=== PATIENT | male | born 1965 | race African-American/Black ===

== ENCOUNTER 2016-12-28 20:26 | Emergency (ER) | payer OTHER ==
[~2016-12-28 20:26] MED LIST: ALBUTEROL SULF8.5 GM INH; BACTRIM DS TAB1 EAC1 ORAL; CLINDAMYCIN HC300 MG ORAL; COLCHICINE0.6 M1 PO; INDOMETHACIN50 MG PO; KEFLEX500 MG ORAL; LANTUS SOL100 UNIT/1 SUBQ; METFORMIN HCL500 M1 ORAL; NORCO 10/3251 EA ORAL; NORCO 5-325 TA1 EACH ORAL; PREDNISONE50 MG ORAL
--- NOTE | 2016-12-28 21:42 | Emergency Room Report ---
History of Present Illness General Chief Complaint: To Be Triaged Present Illness HPI patient checked in but left without being triage. Allergies: Uncoded Allergies: HTN MEDICATION (Allergy, Intermediate, Itching, 06/28/15) Nursing Documentation-PMH Hx Hypertension: Yes Hx Asthma: No - WALKING PNEUMONIA Hx COPD: Yes - on 2L NC at home Hx Diabetes: Yes Hx Seizures: Yes Medical Decision Making Disposition: LEFT W/OUT BEING SEEN AGUSTIN SALAZAR M.D. Dec 28, 2016 21:42
== END 2016-12-28 21:50 | disposition left against medical advice (07) ==
LOC: EMR 21:13
DX: Z53.21 Procedure and treatment not carried out due to patient leaving prior to being seen by health care provider (principal)

== ENCOUNTER 2017-08-26 03:19 | Inpatient (IN) | payer OTHER ==
[~2017-08-26] VITALS: Ht 180.3 cm; Wt 118.4 kg
[2017-08-26] MEDS ORDERED: Vancomycin 1.5gm/D5W 250ml 250 ML IVPB ONE (03:30)
[2017-08-26] MEDS ORDERED: HYDROmorphone 1mg/ml Carpuject IVP ONE (03:30)
[2017-08-26] MEDS ORDERED: Piperacillin/Tazobactam 3.375 GM in NS 110 ML IVPB ONE (03:30)
--- NOTE | 2017-08-26 03:56 | Emergency Room Report ---
History of Present Illness General Chief Complaint: Skin Rash/Abscess Source: Patient, Medical Record Present Illness HPI Is a 52-year-old male who presents with swelling to the right eye. He said he had not therefore will years now. It drained once last year any squeeze whitish stuff out of it and it went down got better. His swelling came back for a while now. His DrYusra never referred him to a surgeon or eye doctor. About a week ago swelling got worse any squeeze some cottage cheesy-looking material out. Swelling came back again and he went to [facility] ER yesterday. He said he get blood work done CT scan done. The toe ligament keep him but decided to let him go home. He received prescription for Bactrim and Keflex. He woke up tonight with increasing swelling. Can't open his eyes anymore. Complaining of pain to that area. No fever or chills and no nausea no vomiting. Allergies: Coded Allergies: QUINAPRIL (Unverified Allergy, Unknown, 08/26/17) Uncoded Allergies: HTN MEDICATION (Allergy, Intermediate, Itching, 06/28/15) Patient History Past Medical History: see triage record, old chart reviewed, DM, HTN Past Surgical History: other Pertinent Family History: none Social History: Denies: smoking Immunizations: other Reviewed Nursing Documentation: PMH: Agreed, PSxH: Agreed Nursing Documentation-PMH Hx Hypertension: Yes Hx Asthma: No - WALKING PNEUMONIA Hx COPD: Yes Hx Diabetes: Yes Hx Seizures: Yes Review of Systems Eye: Denies: eye pain, blurred vision ENT: Denies: ear pain, nose congestion, throat swelling Respiratory: Denies: cough, shortness of breath Cardiovascular: Denies: chest pain, palpitations Gastrointestinal: Denies: abdominal pain, diarrhea, nausea, vomiting Musculoskeletal: Denies: back pain, joint pain Skin: Denies: rash Neurological: Denies: headache, numbness Endocrine: Denies: increased thirst, increased urine Hematologic/Lymphatic: Denies: easy bruising All Other Systems: negative except mentioned in HPI Physical Exam Vital Signs Date Time Temp Pulse Resp B/P (MAP) Pulse Ox O2 Delivery O2 Flow Rate FiO2 08/26/17 03:13 98.1 88 18 132/88 99 Room Air vitals normal Sp02 EP Interpretation: reviewed, normal General Appearance: well appearing, no apparent distress, alert Head: normocephalic, atraumatic Eyes: right eye other - Right eye: He has edema to upper and lower lid. Unable now been assigned spontaneously. Laterally there is scarring over necrotic center. Some erythema to lower greater than upper eyelid., bilateral eye PERRL, bilateral eye EOMI ENT: hearing grossly normal, normal pharynx Neck: full range of motion, supple, no meningismus Respiratory: chest non-tender, lungs clear, normal breath sounds Cardiovascular #1: regular rate, rhythm, no murmur Gastrointestinal: normal bowel sounds, non tender, no mass, no organomegaly, no bruit, non-distended Musculoskeletal: back normal, gait/station normal, normal range of motion Psychiatric: mood/affect normal Skin: warm/dry Procedures Incision and Drainage Incision and Drainage : Consent: Verbal Site: Right eye Blade Size: 11 Wound Location: face Anesthesia: 1% Lidocaine Volume Anesthetic (ccs): 2 Patient Tolerated: Well Complications: None Progress Area clean with chlorhexidine. Then made a 1 cm incision over the lower eyelid laterally, over the necrotic center. It was copious amount of pus expressed. At the end, there was cottage cheesy material expressed. I excised some fibrous tissue. I also made a small incision to the upper eyelid. There was no pus expressed. Dressing placed over the wound. Pt felt better. No complication. Medical Decision Making Diagnostic Impression: Primary Impression: Preseptal cellulitis of right lower eyelid Additional Impressions: Hypokalemia Cellulitis and abscess Infected sebaceous cyst ER Course this patient presents with an abscess and cellulitis of the right lower eyelid and edema to the right upper eyelid. This looked like an infected sebaceous cysts after I I&D it. There was moderate amount of pus expressed with I&D. Zosyn and vancomycin added. No evidence of orbital abscess. No evidence of proptosis or deep infection. He failed outpatient oral antibiotics so admission is warranted for IV antibiotics. I discussed the case with Dr. Duffy who will admit. Lab Results Impression labs with hypokalemia CT/MRI/US Diagnostic Results CT/MRI/US Diagnostic Results : Imaging Test Ordered: CT facial Impression Read by radiologist. His right facial soft tissue swelling with subcutaneous fat stranding with phlegmon versus early abscess. Last Vital Signs Date Time Temp Pulse Resp B/P (MAP) Pulse Ox O2 Delivery O2 Flow Rate FiO2 11/2/17 03:13 98.1 88 18 132/88 99 Room Air Status: improved Disposition: ADMITTED INPATIENT Condition: Serious Referrals: [facility],REFERRING (PCP) AGUSTIN SALAZAR M.D. Aug 26, 2017 03:56
[2017-08-26 04:42] LABS: BASOPHILS % (AUTO) 1.5 % (0.0-2.0); EOSINOPHILS % (AUTO) 2.1 % (0.0-3.0); HEMATOCRIT 42.5 % (42.0-52.0); HEMOGLOBIN 14.2 G/DL (14.2-18.0); LYMPHOCYTES % (AUTO) 25.3 % (20.0-45.0); MEAN CORPUSCULAR VOLUME 107 FL (80-99); MONOCYTES % (AUTO) 9.9 % (1.0-10.0); NEUTROPHILS % (AUTO) 61.1 % (45.0-75.0); PLATELET COUNT 177 K/UL (150-450); RED BLOOD COUNT 3.96 M/UL (4.70-6.10); WHITE BLOOD COUNT 8.6 K/UL (4.8-10.8)
[2017-08-26] MEDS ORDERED: Zosyn 3.375gm inj ONE (04:48)
[2017-08-26 04:51] LABS: ANION GAP 8 mmol/L (5-15); BLOOD UREA NITROGEN 3 mg/dL (7-18); CALCIUM 6.6 MG/DL (8.5-10.1); CARBON DIOXIDE 24 MMOL/L (21-32); CHLORIDE 106 MMOL/L (98-107); CREATININE 0.6 MG/DL (0.55-1.30); SODIUM 138 MMOL/L (136-145)
[2017-08-26 05:01] LABS: POTASSIUM 2.3 MMOL/L (3.5-5.1)
[2017-08-26 05:39] VITALS: BP 132/88
[2017-08-26] MEDS ORDERED: Albuterol/Ipratropium 3ml neb HHN PRN (06:45)
[2017-08-26] MEDS ORDERED: Miralax 17gm pkt ORAL PRN (06:45)
[2017-08-26] MEDS ORDERED: Nitroglycerin Subl 0.4mg tab SL PRN (06:45)
[2017-08-26] MEDS: Cefepime HCl 2 GM in D5W 110 ML IV SCH ×2 (09:07→20:56)
[2017-08-26] MEDS: Heparin 5000 units/ml inj SUBQ SCH ×2 (09:07→20:58)
--- NOTE | 2017-08-26 09:46 | Diagnostic Imaging Report ---
Indication: Facial mass Technique: IV administration nonionic contrast Spiral acquisitions obtained through the face Multiplanar reconstructions were generated. Total dose length product 681 mGycm. CTDIvol(s) 28 mGy. Radiation dose was minimized using automated exposure control Comparison: None Findings: There is marked right superior orbital soft tissue swelling, predominantly involving the subcutaneous fat, extending to the skin surface. There is a small skin defect laterally. The swelling is circumferential around the orbit especially laterally. No evidence of abscess demonstrated. There is a subcutaneous soft tissue nodule in the left malar region that measures 12 mm in diameter. The optic globes are unremarkable. The retroseptal orbital soft tissues are unremarkable. There is medial displacement of the bilateral orbital herrera, particularly on the right, with herniation of fat into the defects. No acute fractures. No significant sinus opacification. There is evidence of failure of eruption of the medial maxillary incisors bilaterally. The remainder of the dentition is intact. The included intracranial structures are unremarkable. Impression: Right periorbital and malar soft tissue swelling, most likely on the basis of cellulitis. No definite evidence of abscess. There is a cutaneous defect likely representing a small ulcer. No evidence of retroseptal orbital involvement Probable left malar region sebaceous cyst or other cutaneous lesion Medial displacement of the bilateral medial orbital herrera, may be developmental or on the basis of prior orbital trauma Unerupted medial maxillary incisors This agrees with the preliminary interpretation provided overnight by [facility] teleradiology service. The CT scanner at [facility] is accredited by the [employer] and the scans are performed using protocols designed to limit radiation exposure to as low as reasonably achievable to attain images of sufficient resolution adequate for diagnostic evaluation.
[2017-08-26] MEDS ORDERED: ADVAIR 500-501 EACH INH (11:29)
[2017-08-26] MEDS ORDERED: SPIRIVA18 MCG INH (11:29)
[2017-08-26] MEDS ORDERED: BASAGLAR K100 UNIT/1 SQ (11:29)
[2017-08-26] MEDS ORDERED: AMLODIPINE BESY10 MG ORAL (11:29)
[2017-08-26] MEDS ORDERED: OMEPRAZOLE20 M2 ORAL (11:29)
[2017-08-26] MEDS ORDERED: ALLOPURINOL100 M1 ORAL (11:29)
[2017-08-26] MEDS: NovoLOG Insulin Flexpen SUBQ SCH ×3 (12:09→20:59)
[2017-08-26] MEDS: Vancomycin 1500mg IVPB SCH ×2 (12:10→23:27)
[2017-08-26 12:20] VITALS: BP 147/78
--- NOTE | 2017-08-26 13:33 | Consultation ---
Consult Note Consult Note [id number] YAMILEX RANGEL M.D. Aug 26, 2017 13:33
--- NOTE | 2017-08-26 13:33 | Consultation ---
Consult Note Consult Note [id number] YAMILEX RANGEL M.D. Aug 26, 2017 13:33
--- NOTE | 2017-08-26 13:33 | Consultation ---
Consult Note Consult Note [id number] YAMILEX RANGEL M.D. Aug 26, 2017 13:33
[2017-08-26 16:00] VITALS: BP 134/91
--- NOTE | 2017-08-26 18:07 | History and Physical ---
History of Present Illness General Date patient seen: Aug 26, 2017 Reason for Hospitalization: Skin Rash/Abscess Present Illness HPI 52-year-old male who presents with swelling to the right eye. About a week ago swelling got worse. with any squeeze some cottage cheesy-looking material came out. Swelling came back again and he went to [facility] ER yesterday. . He received prescription for Bactrim and Keflex. He woke up last night with increasing swelling. He was diagnosed by ER physician to have an abscess and was I&D by him and admitted for further work up Allergies: Coded Allergies: QUINAPRIL (Unverified Allergy, Unknown, 08/26/17) Uncoded Allergies: HTN MEDICATION (Allergy, Intermediate, Itching, 06/28/15) Medication History Scheduled Allopurinol* (Allopurinol*), 100 MG ORAL DAILY, (Reported) Amlodipine Besylate* (Amlodipine Besylate*), 10 MG ORAL DAILY, (Reported) Clindamycin Hcl (Clindamycin Hcl), 300 MG ORAL THREE TIMES A DAY Colchicine (Colchicine), 0.6 MG PO DAILY Fluticasone/Salmeterol (Advair 500-50 Diskus), 1 PUFF INH EVERY 12 HOURS, ( Reported) Indomethacin (Indomethacin), 50 MG PO THREE TIMES A DAY Insulin Glargine (Lantus), 0 SUBQ BEDTIME, (Reported) Metformin Hcl* (Metformin Hcl*), 500 MG ORAL TWICE A DAY, (Reported) Omeprazole (Omeprazole), 20 MG ORAL DAILY, (Reported) Tiotropium [place]* (Spiriva*), 1 PUFF INH DAILY, (Reported) Trimethoprim/Sulfamethoxazole 160/800* (Bactrim Ds Tablet*), 1 TAB ORAL Q12H Scheduled PRN Hydrocodone Bit/Acetaminophen 5-325* ([place] 5-325*), 1 TAB ORAL Q6H PRN for For Pain Miscellaneous Medications Insulin Glargine,Hum.rec.anlog (Geno Gillpen U-100), 100 UNIT SQ, (Reported) Patient History Healthcare decision maker Resuscitation status Full Code Advanced Directive on File Past Medical/Surgical History Past Medical/Surgical History: (1) Infected sebaceous cyst (2) COPD (chronic obstructive pulmonary disease) Review of Systems All Other Systems: negative except mentioned in HPI Physical Exam General Appearance: WD/WN Lines, tubes and drains: peripheral, central line HEENT: normocephalic, atraumatic Neck: non-tender, normal alignment Respiratory/Chest: chest wall non-tender, lungs clear Breasts: no masses Cardiovascular/Chest: normal peripheral pulses Abdomen: normal bowel sounds, non tender Last 24 Hour Vital Signs Date Time Temp Pulse Resp B/P (MAP) Pulse Ox O2 Delivery O2 Flow Rate FiO2 08/26/17 16:00 98.2 85 20 134/91 93 Room Air 08/26/17 12:20 98.0 94 19 147/78 96 Nasal Cannula 3.0 08/26/17 05:39 98.1 18 132/88 99 Room Air 08/26/17 05:38 98.1 18 132/88 99 Room Air 08/26/17 03:13 98.1 88 18 132/88 99 Room Air Intake and Output 08/26/17 08/27/17 19:00 07:00 Intake Total 360 ml Output Total 300 ml Balance 60 ml Intake Oral 360 ml Output Urine Total 300 ml Laboratory Tests Test 08/26/17 04:03 White Blood Count 8.6 K/UL (4.8-10.8) Red Blood Count 3.96 M/UL (4.70-6.10) L Hemoglobin 14.2 G/DL (14.2-18.0) Hematocrit 42.5 % (42.0-52.0) Mean Corpuscular Volume 107 FL (80-99) H Mean Corpuscular Hemoglobin 35.9 PG (27.0-31.0) H Mean Corpuscular Hemoglobin Concent 33.5 G/DL (32.0-36.0) Red Cell Distribution Width 16.0 % (11.6-14.8) H Platelet Count 177 K/UL (150-450) Mean Platelet Volume 8.1 FL (6.5-10.1) Neutrophils (%) (Auto) 61.1 % (45.0-75.0) Lymphocytes (%) (Auto) 25.3 % (20.0-45.0) Monocytes (%) (Auto) 9.9 % (1.0-10.0) Eosinophils (%) (Auto) 2.1 % (0.0-3.0) Basophils (%) (Auto) 1.5 % (0.0-2.0) Sodium Level 138 MMOL/L (136-145) Potassium Level 2.3 MMOL/L (3.5-5.1) *L Chloride Level 106 MMOL/L (98-107) Carbon Dioxide Level 24 MMOL/L (21-32) Anion Gap 8 mmol/L (5-15) Blood Urea Nitrogen 3 mg/dL (7-18) L Creatinine 0.6 MG/DL (0.55-1.30) Estimat Glomerular Filtration Rate > 60 mL/min (>60) Glucose Level 171 MG/DL (74-106) H Calcium Level 6.6 MG/DL (8.5-10.1) L Height (Feet): 5 Height (Inches): 11.00 Weight (Pounds): 261 Medications Current Medications Medications (Trade) Dose Ordered Sig/Jorge L Route PRN Reason Start Time Stop Time Status Last Admin Dose Admin Acetaminophen (Tylenol) 650 mg Q4H PRN ORAL fever 08/26/17 06:45 09/25/17 06:44 Albuterol/ Ipratropium (Albuterol/ Ipratropium) 3 ml Q4H PRN HHN Shortness of Breath 08/26/17 06:45 08/31/17 06:44 Cefepime HCl 2 gm/ Dextrose 110 ml @ 220 mls/hr EVERY 12 HOURS IV 08/26/17 09:00 09/02/17 08:59 08/26/17 09:07 Dextrose (Dextrose 50%) STAT PRN IV Hypoglycemia 08/26/17 06:45 09/25/17 06:44 Heparin Sodium (Porcine) (Heparin 5000 units/ml) 5,000 units EVERY 12 HOURS SUBQ 08/26/17 09:00 09/25/17 08:59 08/26/17 09:07 Insulin Aspart (NovoLOG) BEFORE MEALS AND HS SUBQ 08/26/17 11:30 09/25/17 11:29 08/26/17 16:57 Nitroglycerin (Ntg) 0.4 mg Q5min x 3 doses PRN SL Prn Chest Pain 08/26/17 06:45 09/25/17 06:44 Ondansetron HCl (Zofran) 4 mg Q6H PRN IVP Nausea & Vomiting 08/26/17 06:45 09/25/17 06:44 Polyethylene Glycol (Miralax) 17 gm DAILYPRN PRN ORAL Constipation 08/26/17 06:45 09/25/17 06:44 Temazepam (Restoril) 15 mg HSPRN PRN ORAL Insomnia 08/26/17 06:45 09/02/17 06:44 Vancomycin HCl/ Dextrose 250 ml @ 125 mls/hr Q12H IVPB 08/26/17 12:00 08/31/17 11:59 08/26/17 12:10 Assessment/Plan Problem List: (1) Cellulitis and abscess ICD Codes: L03.90 - Cellulitis and abscess; L02.91 - Cutaneous abscess, unspecified SNOMED: 269595153 (2) Preseptal cellulitis of right lower eyelid ICD Codes: L03.213 - Periorbital cellulitis; L08.9 - Local infection of the skin and subcutaneous tissue, unspecified SNOMED: 888770015 (3) Diabetes ICD Codes: E11.9 - Type 2 diabetes mellitus without complications SNOMED: 70479745 Assessment/Plan iv abx local care ophthalmology evaluaiton check cultures ADONIS JOE Aug 26, 2017 18:07
--- NOTE | 2017-08-26 18:07 | History and Physical ---
History of Present Illness General Date patient seen: Aug 26, 2017 Reason for Hospitalization: Skin Rash/Abscess Present Illness HPI 52-year-old male who presents with swelling to the right eye. About a week ago swelling got worse. with any squeeze some cottage cheesy-looking material came out. Swelling came back again and he went to [facility] ER yesterday. . He received prescription for Bactrim and Keflex. He woke up last night with increasing swelling. He was diagnosed by ER physician to have an abscess and was I&D by him and admitted for further work up Allergies: Coded Allergies: QUINAPRIL (Unverified Allergy, Unknown, 08/26/17) Uncoded Allergies: HTN MEDICATION (Allergy, Intermediate, Itching, 06/28/15) Medication History Scheduled Allopurinol* (Allopurinol*), 100 MG ORAL DAILY, (Reported) Amlodipine Besylate* (Amlodipine Besylate*), 10 MG ORAL DAILY, (Reported) Clindamycin Hcl (Clindamycin Hcl), 300 MG ORAL THREE TIMES A DAY Colchicine (Colchicine), 0.6 MG PO DAILY Fluticasone/Salmeterol (Advair 500-50 Diskus), 1 PUFF INH EVERY 12 HOURS, ( Reported) Indomethacin (Indomethacin), 50 MG PO THREE TIMES A DAY Insulin Glargine (Lantus), 0 SUBQ BEDTIME, (Reported) Metformin Hcl* (Metformin Hcl*), 500 MG ORAL TWICE A DAY, (Reported) Omeprazole (Omeprazole), 20 MG ORAL DAILY, (Reported) Tiotropium [place]* (Spiriva*), 1 PUFF INH DAILY, (Reported) Trimethoprim/Sulfamethoxazole 160/800* (Bactrim Ds Tablet*), 1 TAB ORAL Q12H Scheduled PRN Hydrocodone Bit/Acetaminophen 5-325* ([place] 5-325*), 1 TAB ORAL Q6H PRN for For Pain Miscellaneous Medications Insulin Glargine,Hum.rec.anlog (Geno Gillpen U-100), 100 UNIT SQ, (Reported) Patient History Healthcare decision maker Resuscitation status Full Code Advanced Directive on File Past Medical/Surgical History Past Medical/Surgical History: (1) Infected sebaceous cyst (2) COPD (chronic obstructive pulmonary disease) Review of Systems All Other Systems: negative except mentioned in HPI Physical Exam General Appearance: WD/WN Lines, tubes and drains: peripheral, central line HEENT: normocephalic, atraumatic Neck: non-tender, normal alignment Respiratory/Chest: chest wall non-tender, lungs clear Breasts: no masses Cardiovascular/Chest: normal peripheral pulses Abdomen: normal bowel sounds, non tender Last 24 Hour Vital Signs Date Time Temp Pulse Resp B/P (MAP) Pulse Ox O2 Delivery O2 Flow Rate FiO2 08/26/17 16:00 98.2 85 20 134/91 93 Room Air 08/26/17 12:20 98.0 94 19 147/78 96 Nasal Cannula 3.0 08/26/17 05:39 98.1 18 132/88 99 Room Air 08/26/17 05:38 98.1 18 132/88 99 Room Air 08/26/17 03:13 98.1 88 18 132/88 99 Room Air Intake and Output 08/26/17 08/27/17 19:00 07:00 Intake Total 360 ml Output Total 300 ml Balance 60 ml Intake Oral 360 ml Output Urine Total 300 ml Laboratory Tests Test 08/26/17 04:03 White Blood Count 8.6 K/UL (4.8-10.8) Red Blood Count 3.96 M/UL (4.70-6.10) L Hemoglobin 14.2 G/DL (14.2-18.0) Hematocrit 42.5 % (42.0-52.0) Mean Corpuscular Volume 107 FL (80-99) H Mean Corpuscular Hemoglobin 35.9 PG (27.0-31.0) H Mean Corpuscular Hemoglobin Concent 33.5 G/DL (32.0-36.0) Red Cell Distribution Width 16.0 % (11.6-14.8) H Platelet Count 177 K/UL (150-450) Mean Platelet Volume 8.1 FL (6.5-10.1) Neutrophils (%) (Auto) 61.1 % (45.0-75.0) Lymphocytes (%) (Auto) 25.3 % (20.0-45.0) Monocytes (%) (Auto) 9.9 % (1.0-10.0) Eosinophils (%) (Auto) 2.1 % (0.0-3.0) Basophils (%) (Auto) 1.5 % (0.0-2.0) Sodium Level 138 MMOL/L (136-145) Potassium Level 2.3 MMOL/L (3.5-5.1) *L Chloride Level 106 MMOL/L (98-107) Carbon Dioxide Level 24 MMOL/L (21-32) Anion Gap 8 mmol/L (5-15) Blood Urea Nitrogen 3 mg/dL (7-18) L Creatinine 0.6 MG/DL (0.55-1.30) Estimat Glomerular Filtration Rate > 60 mL/min (>60) Glucose Level 171 MG/DL (74-106) H Calcium Level 6.6 MG/DL (8.5-10.1) L Height (Feet): 5 Height (Inches): 11.00 Weight (Pounds): 261 Medications Current Medications Medications (Trade) Dose Ordered Sig/Jorge L Route PRN Reason Start Time Stop Time Status Last Admin Dose Admin Acetaminophen (Tylenol) 650 mg Q4H PRN ORAL fever 08/26/17 06:45 09/25/17 06:44 Albuterol/ Ipratropium (Albuterol/ Ipratropium) 3 ml Q4H PRN HHN Shortness of Breath 08/26/17 06:45 08/31/17 06:44 Cefepime HCl 2 gm/ Dextrose 110 ml @ 220 mls/hr EVERY 12 HOURS IV 08/26/17 09:00 09/02/17 08:59 08/26/17 09:07 Dextrose (Dextrose 50%) STAT PRN IV Hypoglycemia 08/26/17 06:45 09/25/17 06:44 Heparin Sodium (Porcine) (Heparin 5000 units/ml) 5,000 units EVERY 12 HOURS SUBQ 08/26/17 09:00 09/25/17 08:59 08/26/17 09:07 Insulin Aspart (NovoLOG) BEFORE MEALS AND HS SUBQ 08/26/17 11:30 09/25/17 11:29 08/26/17 16:57 Nitroglycerin (Ntg) 0.4 mg Q5min x 3 doses PRN SL Prn Chest Pain 08/26/17 06:45 09/25/17 06:44 Ondansetron HCl (Zofran) 4 mg Q6H PRN IVP Nausea & Vomiting 08/26/17 06:45 09/25/17 06:44 Polyethylene Glycol (Miralax) 17 gm DAILYPRN PRN ORAL Constipation 08/26/17 06:45 09/25/17 06:44 Temazepam (Restoril) 15 mg HSPRN PRN ORAL Insomnia 08/26/17 06:45 09/02/17 06:44 Vancomycin HCl/ Dextrose 250 ml @ 125 mls/hr Q12H IVPB 08/26/17 12:00 08/31/17 11:59 08/26/17 12:10 Assessment/Plan Problem List: (1) Cellulitis and abscess ICD Codes: L03.90 - Cellulitis and abscess; L02.91 - Cutaneous abscess, unspecified SNOMED: 766920765 (2) Preseptal cellulitis of right lower eyelid ICD Codes: L03.213 - Periorbital cellulitis; L08.9 - Local infection of the skin and subcutaneous tissue, unspecified SNOMED: 395773522 (3) Diabetes ICD Codes: E11.9 - Type 2 diabetes mellitus without complications SNOMED: 60670275 Assessment/Plan iv abx local care ophthalmology evaluaiton check cultures ADONIS JOE Aug 26, 2017 18:07
--- NOTE | 2017-08-26 18:46 | Consultation ---
DATE OF CONSULTATION: 08/26/2017 INFECTIOUS DISEASES CONSULTATION CONSULTING PHYSICIAN: Refugio Slater MD REFERRING PHYSICIAN: Tequila Duffy M.D. REASON FOR CONSULTATION: Evaluation of the patient for periorbital cellulitis. HISTORY OF PRESENT ILLNESS: The patient is a 52-year-old male with multiple medical problems as mentioned below who developed a pimple on the eye. The patient has squeezed area and the patient developed swelling and erythema around the eye and face. The patient was admitted with impression of periorbital cellulitis and Infectious Diseases consultation has been requested for further evaluation of the patient and antibiotic management. PAST MEDICAL HISTORY: 1. Seizure. 2. Hypertension. 3. COPD. 4. Diabetes. MEDICATIONS: IV cefepime and vancomycin. ALLERGIES: Quinapril. SOCIAL HISTORY: Negative for alcohol, drug abuse, or smoking. FAMILY HISTORY: Not contributing. REVIEW OF SYSTEMS: HEENT: No recent change in vision or hearing. EXTREMITIES: No cyanosis. HEENT: As mentioned above. The patient has facial cellulitis. CHEST: No cough or shortness of breath. No pain. GASTROINTESTINAL/ABDOMEN: No nausea or vomiting. GENITOURINARY: No dysuria. PHYSICAL EXAMINATION: VITAL SIGNS: Temperature 98, blood pressure 147/88, pulse 86, respiratory rate 18. HEENT: No pale conjunctivae. No icterus. NECK: No lymphadenopathy. CHEST: Clear. HEART: S1 and S2. ABDOMEN: Soft. SKIN: The patient has small abscess over the lateral of the right eye with erythema and swelling of the eyelids, presumably periorbital cellulitis. LABORATORY DATA: White blood cell count 8.6, hemoglobin 14, platelets 177. BUN 3, creatinine 0.8. ASSESSMENT: 1. Periorbital cellulitis, most likely due to Staphylococcus secondary to facial abscess. 2. Afebrile. 3. Rule out bacteremia. PLAN: 1. We will continue the patient on IV vancomycin and cefepime for now. 2. Monitor cultures (wound and blood). 3. Monitor CBC and BMP. 4. Based on the patient's clinical course and labs, we will do further recommendations. Thank you, Dr. Duffy, for allowing me to participate in the care of this patient. I will follow the patient with you during this hospitalization. Refugio Slaetr M.D. DR: Rose Mary JOB#: [id number] CC:
[2017-08-26 20:00] VITALS: BP 158/108
[2017-08-27] VITALS: BP 141/104
[2017-08-27] MEDS ORDERED: Vancomycin 1 GM in D5W 275 ML IV SCH (00:30)
[2017-08-27 04:00] VITALS: BP_SYST 116; BP_SYST 146; BP_DIAS 97
[2017-08-27] MEDS: NovoLOG Insulin Flexpen SUBQ SCH ×2 (05:51→12:25)
[2017-08-27 07:14] LABS: BASOPHILS % (AUTO) 1.3 % (0.0-2.0); EOSINOPHILS % (AUTO) 2.4 % (0.0-3.0); HEMATOCRIT 42.6 % (42.0-52.0); HEMOGLOBIN 13.8 G/DL (14.2-18.0); LYMPHOCYTES % (AUTO) 23.5 % (20.0-45.0); MEAN CORPUSCULAR VOLUME 109 FL (80-99); MONOCYTES % (AUTO) 11.9 % (1.0-10.0); NEUTROPHILS % (AUTO) 60.9 % (45.0-75.0); PLATELET COUNT 191 K/UL (150-450); RED BLOOD COUNT 3.91 M/UL (4.70-6.10); RED CELL DISTRIBUTION WIDTH 15.6 % (11.6-14.8); WHITE BLOOD COUNT 5.7 K/UL (4.8-10.8)
[2017-08-27 07:18] LABS: ALANINE AMINOTRANSFERASE 22 U/L (12-78); ALBUMIN 3.1 G/DL (3.4-5.0); ALBUMIN/GLOBULIN RATIO 0.9 (1.0-2.7); ALKALINE PHOSPHATASE 57 U/L (46-116); ANION GAP 10 mmol/L (5-15); ASPARTATE AMINO TRANSFERASE 18 U/L (15-37); BILIRUBIN,TOTAL 0.6 MG/DL (0.2-1.0); BLOOD UREA NITROGEN 7 mg/dL (7-18); CALCIUM 8.9 MG/DL (8.5-10.1); CARBON DIOXIDE 28 MMOL/L (21-32); CHLORIDE 102 MMOL/L (98-107); CREATININE 0.8 MG/DL (0.55-1.30); POTASSIUM 3.8 MMOL/L (3.5-5.1); SODIUM 139 MMOL/L (136-145)
--- NOTE | 2017-08-27 08:23 | Pulmonology Progress Note ---
Assessment/Plan Assessment/Plan ASSESSMENT R periorbital cellulitis acute hypokalemia DM HTN possibly infected sebaceous cyst PLAN OF CARE [facility] floor IV abx ID follows [employer] Program Technician eval- spoke with dr Martin. Unfortunately has surgery this am, and not available today CT facial bones revealed Right periorbital and malar soft tissue swelling, most likely on the basis of cellulitis. No definite evidence of abscess. There was a cutaneous defect likely representing a small ulcer. No evidence of retroseptal orbital involvement Probable left malar region sebaceous cyst or other cutaneous lesion K replaced and stable this am BS management with SS of insulin BP stable, no need for anti HTN meds at this time pain management Bowel regimen DVT prophylaxis discussed with ID ok for dc home on oral abx script provided patient was instructed to fup with PMD to get a referral to class a lineman per insurance plan to see for further management case discussed and evaluated by supervising physician Subjective Allergies: Coded Allergies: QUINAPRIL (Unverified Allergy, Unknown, 08/26/17) Uncoded Allergies: HTN MEDICATION (Allergy, Intermediate, Itching, 06/28/15) Subjective patient improving needs to leave today due to personal issues afebrile, no leukocytosis, Objective Last 24 Hour Vital Signs Date Time Temp Pulse Resp B/P (MAP) Pulse Ox O2 Delivery O2 Flow Rate FiO2 08/27/17 04:00 98.2 84 20 146/97 95 Nasal Cannula 3.0 08/27/17 00:00 98.2 89 20 141/104 99 Nasal Cannula 3.0 08/26/17 20:00 98.4 80 20 158/108 95 Nasal Cannula 3.0 08/26/17 20:00 91 18 Room Air 08/26/17 16:00 98.2 85 20 134/91 93 Room Air 08/26/17 12:20 98.0 94 19 147/78 96 Nasal Cannula 3.0 General Appearance: other - A/A/O x 4 AA male morbidly obese amle in NAD HEENT: normocephalic, atraumatic, anicteric, mucous membranes moist, other - R periorbital erythema and edema, no pus Respiratory/Chest: lungs clear, normal breath sounds, no respiratory distress Cardiovascular: normal rate, regular rhythm, no JVD Abdomen: normal bowel sounds, soft, non tender - obese Neurologic/Psychiatric: no motor/sensory deficits, alert, oriented x 3, responsive Musculoskeletal: normal muscle bulk Laboratory Tests 08/27/17 05:45: White Blood Count 5.7, Red Blood Count 3.91L, Hemoglobin 13.8L, Hematocrit 42.6 , Mean Corpuscular Volume 109H, Mean Corpuscular Hemoglobin 35.4H, Mean Corpuscular Hemoglobin Concent 32.5, Red Cell Distribution Width 15.6H, Platelet Count 191, Mean Platelet Volume 8.3, Neutrophils (%) (Auto) 60.9, Lymphocytes (%) (Auto) 23.5, Monocytes (%) (Auto) 11.9H, Eosinophils (%) (Auto) 2.4, Basophils (%) (Auto) 1.3, Sodium Level 139, Potassium Level 3.8#, Chloride Level 102, Carbon Dioxide Level 28, Anion Gap 10, Blood Urea Nitrogen 7, Creatinine 0.8, Estimat Glomerular Filtration Rate > 60, Glucose Level 310#H, Calcium Level 8.9#, Total Bilirubin 0.6, Aspartate Amino Transf (AST/SGOT) 18, Alanine Aminotransferase (ALT/SGPT) 22, Alkaline Phosphatase 57, Total Protein 6.7, Albumin 3.1L, Globulin 3.6, Albumin/Globulin Ratio 0.9L Current Medications Medications (Trade) Dose Ordered Sig/Jorge L Route PRN Reason Start Time Stop Time Status Last Admin Dose Admin Acetaminophen (Tylenol) 650 mg Q4H PRN ORAL fever 08/26/17 06:45 09/25/17 06:44 Albuterol/ Ipratropium (Albuterol/ Ipratropium) 3 ml Q4H PRN HHN Shortness of Breath 08/26/17 06:45 08/31/17 06:44 Cefepime HCl 2 gm/ Dextrose 110 ml @ 220 mls/hr EVERY 12 HOURS IV 08/26/17 09:00 09/02/17 08:59 08/26/17 20:56 Dextrose (Dextrose 50%) STAT PRN IV Hypoglycemia 08/26/17 06:45 09/25/17 06:44 Heparin Sodium (Porcine) (Heparin 5000 units/ml) 5,000 units EVERY 12 HOURS SUBQ 08/26/17 09:00 09/25/17 08:59 08/26/17 20:58 Insulin Aspart (NovoLOG) BEFORE MEALS AND HS SUBQ 08/26/17 11:30 09/25/17 11:29 08/27/17 05:51 Nitroglycerin (Ntg) 0.4 mg Q5min x 3 doses PRN SL Prn Chest Pain 08/26/17 06:45 09/25/17 06:44 Ondansetron HCl (Zofran) 4 mg Q6H PRN IVP Nausea & Vomiting 08/26/17 06:45 09/25/17 06:44 Polyethylene Glycol (Miralax) 17 gm DAILYPRN PRN ORAL Constipation 08/26/17 06:45 09/25/17 06:44 Temazepam (Restoril) 15 mg HSPRN PRN ORAL Insomnia 08/26/17 06:45 09/02/17 06:44 Vancomycin HCl/ Dextrose 250 ml @ 125 mls/hr Q12H IVPB 08/26/17 12:00 08/31/17 11:59 08/26/17 23:27 Hang CarvalhoKatarina carney NP Aug 27, 2017 08:23
--- NOTE | 2017-08-27 09:34 | Infectious Diseases Prog Note ---
Assessment/Plan Assessment/Plan ASSESSMENT: The patient is a 52-year-old male with Periorbital cellulitis, most likely due to Staphylococcus secondary to facial abscess. Afebrile. Rule out bacteremia. Seizure. Hypertension. COPD. Diabetes. PLAN: will continue the patient on IV vancomycin and cefepime n d# 2 , upon DC will cont pt on oral Bactrim and Keflex to complete the course Monitor cultures (wound and blood). Monitor CBC and BMP. Subjective Allergies: Coded Allergies: QUINAPRIL (Unverified Allergy, Unknown, 08/26/17) Uncoded Allergies: HTN MEDICATION (Allergy, Intermediate, Itching, 06/28/15) Subjective no new complain Objective Vital Signs Last 24 Hour Vital Signs Date Time Temp Pulse Resp B/P (MAP) Pulse Ox O2 Delivery O2 Flow Rate FiO2 08/27/17 08:10 82 18 Room Air 08/27/17 04:00 98.2 84 20 146/97 95 Nasal Cannula 3.0 08/27/17 00:00 98.2 89 20 141/104 99 Nasal Cannula 3.0 08/26/17 20:00 98.4 80 20 158/108 95 Nasal Cannula 3.0 08/26/17 20:00 91 18 Room Air 08/26/17 16:00 98.2 85 20 134/91 93 Room Air 08/26/17 12:20 98.0 94 19 147/78 96 Nasal Cannula 3.0 Height (Feet): 5 Height (Inches): 11.00 Weight (Pounds): 261 HEENT: other - periobital cellulitis ( Rt ) Respiratory/Chest: normal breath sounds Cardiovascular: regularly irregular Abdomen: soft, non tender Laboratory Tests Test 08/27/17 05:45 White Blood Count 5.7 K/UL (4.8-10.8) Red Blood Count 3.91 M/UL (4.70-6.10) L Hemoglobin 13.8 G/DL (14.2-18.0) L Hematocrit 42.6 % (42.0-52.0) Mean Corpuscular Volume 109 FL (80-99) H Mean Corpuscular Hemoglobin 35.4 PG (27.0-31.0) H Mean Corpuscular Hemoglobin Concent 32.5 G/DL (32.0-36.0) Red Cell Distribution Width 15.6 % (11.6-14.8) H Platelet Count 191 K/UL (150-450) Mean Platelet Volume 8.3 FL (6.5-10.1) Neutrophils (%) (Auto) 60.9 % (45.0-75.0) Lymphocytes (%) (Auto) 23.5 % (20.0-45.0) Monocytes (%) (Auto) 11.9 % (1.0-10.0) H Eosinophils (%) (Auto) 2.4 % (0.0-3.0) Basophils (%) (Auto) 1.3 % (0.0-2.0) Sodium Level 139 MMOL/L (136-145) Potassium Level 3.8 MMOL/L (3.5-5.1) # Chloride Level 102 MMOL/L (98-107) Carbon Dioxide Level 28 MMOL/L (21-32) Anion Gap 10 mmol/L (5-15) Blood Urea Nitrogen 7 mg/dL (7-18) Creatinine 0.8 MG/DL (0.55-1.30) Estimat Glomerular Filtration Rate > 60 mL/min (>60) Glucose Level 310 MG/DL (74-106) #H Calcium Level 8.9 MG/DL (8.5-10.1) # Total Bilirubin 0.6 MG/DL (0.2-1.0) Aspartate Amino Transf (AST/SGOT) 18 U/L (15-37) Alanine Aminotransferase (ALT/SGPT) 22 U/L (12-78) Alkaline Phosphatase 57 U/L (46-116) Total Protein 6.7 G/DL (6.4-8.2) Albumin 3.1 G/DL (3.4-5.0) L Globulin 3.6 g/dL Albumin/Globulin Ratio 0.9 (1.0-2.7) L Current Medications Medications (Trade) Dose Ordered Sig/Jorge L Route PRN Reason Start Time Stop Time Status Last Admin Dose Admin Acetaminophen (Tylenol) 650 mg Q4H PRN ORAL fever 08/26/17 06:45 09/25/17 06:44 Albuterol/ Ipratropium (Albuterol/ Ipratropium) 3 ml Q4H PRN HHN Shortness of Breath 08/26/17 06:45 08/31/17 06:44 Cefepime HCl 2 gm/ Dextrose 110 ml @ 220 mls/hr EVERY 12 HOURS IV 08/26/17 09:00 09/02/17 08:59 08/26/17 20:56 Dextrose (Dextrose 50%) STAT PRN IV Hypoglycemia 08/26/17 06:45 09/25/17 06:44 Heparin Sodium (Porcine) (Heparin 5000 units/ml) 5,000 units EVERY 12 HOURS SUBQ 08/26/17 09:00 09/25/17 08:59 08/26/17 20:58 Insulin Aspart (NovoLOG) BEFORE MEALS AND HS SUBQ 08/26/17 11:30 09/25/17 11:29 08/27/17 05:51 Nitroglycerin (Ntg) 0.4 mg Q5min x 3 doses PRN SL Prn Chest Pain 08/26/17 06:45 09/25/17 06:44 Ondansetron HCl (Zofran) 4 mg Q6H PRN IVP Nausea & Vomiting 08/26/17 06:45 09/25/17 06:44 Polyethylene Glycol (Miralax) 17 gm DAILYPRN PRN ORAL Constipation 08/26/17 06:45 09/25/17 06:44 Temazepam (Restoril) 15 mg HSPRN PRN ORAL Insomnia 08/26/17 06:45 09/02/17 06:44 Vancomycin HCl/ Dextrose 250 ml @ 125 mls/hr Q12H IVPB 08/26/17 12:00 08/31/17 11:59 08/26/17 23:27 YAMILEX RANGEL M.D. Aug 27, 2017 09:34
[2017-08-27] MEDS: Cefepime HCl 2 GM in D5W 110 ML IV SCH (09:36)
[2017-08-27] MEDS: Heparin 5000 units/ml inj SUBQ SCH (09:42)
[2017-08-27 12:00] VITALS: BP 159/101
[2017-08-27] MEDS ORDERED: BACTRIM-DS1 EA ORAL (12:02)
[2017-08-27] MEDS ORDERED: CEPHALEXIN500 MG ORAL (12:02)
[2017-08-27] MEDS: Vancomycin 1500mg IVPB SCH (12:28)
--- NOTE | 2017-08-27 12:28 | Diagnostic Imaging Report ---
APPROVED REPORT CPT Code: 04681 Present Symptoms Shortness of breath BILATERAL: Imaging reveals a patent deep venous system bilaterally. There is no evidence of thrombus within the femoral, popliteal or tibial segments. The greater saphenous veins are also within normal limits. Doppler indicates normal spontaneous flow within these segments.
--- NOTE | 2017-08-27 12:28 | Diagnostic Imaging Report ---
APPROVED REPORT CPT Code: 12406 Present Symptoms Shortness of breath BILATERAL: Imaging reveals a patent deep venous system bilaterally. There is no evidence of thrombus within the femoral, popliteal or tibial segments. The greater saphenous veins are also within normal limits. Doppler indicates normal spontaneous flow within these segments.
--- NOTE | 2017-08-27 12:28 | Diagnostic Imaging Report ---
APPROVED REPORT CPT Code: 25600 Present Symptoms Shortness of breath BILATERAL: Imaging reveals a patent deep venous system bilaterally. There is no evidence of thrombus within the femoral, popliteal or tibial segments. The greater saphenous veins are also within normal limits. Doppler indicates normal spontaneous flow within these segments.
[2017-08-27] MEDS ORDERED: Tubing IV Secondary IV ONE (14:53)
[2017-08-27] MEDS ORDERED: NS 500ML IV ONE (14:53)
--- NOTE | 2017-08-30 11:46 | Discharge Summary ---
Discharge Summary Hospital Course Date of Admission Aug 26, 2017 at 04:40 Date of Discharge Aug 27, 2017 at 15:17 Admitting Diagnosis orbital cellulitis HPI Young Jimenez is a 52 year old male who was admitted on Aug 26, 2017 at 04:40 for Orbital Cellulitis Hospital Course dc summary #[id number] Discharge Medications New Medications: Cephalexin* (Keflex*) 500 Mg Capsule 500 MG ORAL EVERY 6 HOURS, #32 CAP Trimethoprim/Sulfamethoxazole (Bactrim Ds Tablet) 1 Each Tablet 1 TAB ORAL TWICE A DAY, #16 TAB Continued Medications: Allopurinol* (Allopurinol*) 100 Mg Tablet 100 MG ORAL DAILY, TAB Amlodipine Besylate* (Amlodipine Besylate*) 10 Mg Tablet 10 MG ORAL DAILY, TAB Colchicine (Colchicine) 0.6 Mg Capsule 0.6 MG PO DAILY, #7 CAP Fluticasone/Salmeterol (Advair 500-50 Diskus) 1 Each Blst.w.dev 1 PUFF INH EVERY 12 HOURS, EA Insulin Glargine (Lantus) 100 Unit/1 Ml Insuln.pen 0 SUBQ BEDTIME, #1 EA 0 Refills Metformin Hcl* (Metformin Hcl*) 500 Mg Tablet 500 MG ORAL TWICE A DAY, TAB Omeprazole (Omeprazole) 20 Mg Capsule.dr 20 MG ORAL DAILY, CAP Tiotropium [place]* (Spiriva*) 18 Mcg Cap.w.dev 1 PUFF INH DAILY, EA Discharge Condition Upon Discharge: stable Discharge Disposition Patient was discharged to Home (01) Discharge Diagnoses: Hang (Zulema)Katarina NP Aug 30, 2017 11:46
--- NOTE | 2017-08-30 11:46 | Discharge Summary ---
Discharge Summary Hospital Course Date of Admission Aug 26, 2017 at 04:40 Date of Discharge Aug 27, 2017 at 15:17 Admitting Diagnosis orbital cellulitis HPI Young Jimenez is a 52 year old male who was admitted on Aug 26, 2017 at 04:40 for Orbital Cellulitis Hospital Course dc summary #[id number] Discharge Medications New Medications: Cephalexin* (Keflex*) 500 Mg Capsule 500 MG ORAL EVERY 6 HOURS, #32 CAP Trimethoprim/Sulfamethoxazole (Bactrim Ds Tablet) 1 Each Tablet 1 TAB ORAL TWICE A DAY, #16 TAB Continued Medications: Allopurinol* (Allopurinol*) 100 Mg Tablet 100 MG ORAL DAILY, TAB Amlodipine Besylate* (Amlodipine Besylate*) 10 Mg Tablet 10 MG ORAL DAILY, TAB Colchicine (Colchicine) 0.6 Mg Capsule 0.6 MG PO DAILY, #7 CAP Fluticasone/Salmeterol (Advair 500-50 Diskus) 1 Each Blst.w.dev 1 PUFF INH EVERY 12 HOURS, EA Insulin Glargine (Lantus) 100 Unit/1 Ml Insuln.pen 0 SUBQ BEDTIME, #1 EA 0 Refills Metformin Hcl* (Metformin Hcl*) 500 Mg Tablet 500 MG ORAL TWICE A DAY, TAB Omeprazole (Omeprazole) 20 Mg Capsule.dr 20 MG ORAL DAILY, CAP Tiotropium [place]* (Spiriva*) 18 Mcg Cap.w.dev 1 PUFF INH DAILY, EA Discharge Condition Upon Discharge: stable Discharge Disposition Patient was discharged to Home (01) Discharge Diagnoses: Hang (Zulema)Katarina NP Aug 30, 2017 11:46
--- NOTE | 2017-08-31 08:31 | Discharge Summary 2 SIG ---
DATE OF ADMISSION: 08/26/2017 DATE OF DISCHARGE: 08/27/2017 REASON FOR ADMISSION: 52-year-old male, presented with right eye swelling. He reported white thick material coming out on squeezing the eye about a week ago. At that time, swelling resolved, but then it returned, The patient went to [facility] emergency department day prior to presentation in [facility]. He received prescription for Bactrim and Keflex. However, he woke up last night with increased swelling of right eye , and came to the emergency department for evaluation. In addition, he complained of the pain in the right eye. No fever, no chills. No nausea, no vomiting. He could not open his eye. Workup revealed stable vital signs. The patient had no fever, no leukocytosis. Facial bone CT revealed right periorbital and malar soft tissue swelling most likely on the basis of cellulitis, no definite evidence of the abscess. No retroseptal orbital involvement. Cutaneous defect likely representing a small ulcer was noted. Probable left malar region sebaceous cyst or other cutaneous lesion. The patient subsequently undergone incision and drainage of the lower eyelid, started on antibiotic, and admitted for further management. Vital signs were stable. Initially, low potassium - 2.3, repleted in ED. The patient was diagnosed with periorbital cellulitis of right lower eyelid, hypokalemia, possible abscess, and infected sebaceous cyst. HOSPITAL STAY: The patient was admitted to Med/Surg floor. ID consult was requested. The patient was started on empiric IV antibiotics. Wound culture revealed normal skin ricco. Blood cultures were negative. The patient was on the IV antibiotics. Blood pressure was stable, no need for antihypertensive medication. Blood sugar was managed with sliding scale of insulin. Pain management was provided. Bowel regimen was instituted. Potassium after repletion -3.8. DVT prophylaxis provided. Initially attempted to get locomotive boilermaker evaluation, however, Dr. Martin had a surgery that morning and was not available. Discussed with the Infectious Disease doctor, per ID recommendations , the patient was cleared to be discharged home on oral antibiotics. Scripts provided. The patient was instructed to follow up with the primary medical doctor next week and get a referral to locomotive boilermaker per insurance plan to see for further management. Due to rapid and unexpected improvement in the patient's condition, the patient was discharged in one day. FINAL DIAGNOSES: 1. Right periorbital cellulitis. 2. Acute hypokalemia. 3. Diabetes. 4. Hypertension. 5. Possibly infected sebaceous cyst. DISCHARGE MEDICATIONS: See medication reconciliation list. Scripts provided for antibiotic. Encouraged compliance. DISCHARGE INSTRUCTIONS: The patient was discharged home. Follow up next week with the primary medical doctor to get a referral to locomotive boilermaker per insurance plan for further management. Tequila Duffy M.D. Katarina Mauricio ([facility] CenterInocencio N.PYusra DR: TAPAN JOB#: [id number] CC: JESU
--- NOTE | 2017-08-31 08:31 | Discharge Summary 2 SIG ---
DATE OF ADMISSION: 08/26/2017 DATE OF DISCHARGE: 08/27/2017 REASON FOR ADMISSION: 52-year-old male, presented with right eye swelling. He reported white thick material coming out on squeezing the eye about a week ago. At that time, swelling resolved, but then it returned, The patient went to [facility] emergency department day prior to presentation in [facility]. He received prescription for Bactrim and Keflex. However, he woke up last night with increased swelling of right eye , and came to the emergency department for evaluation. In addition, he complained of the pain in the right eye. No fever, no chills. No nausea, no vomiting. He could not open his eye. Workup revealed stable vital signs. The patient had no fever, no leukocytosis. Facial bone CT revealed right periorbital and malar soft tissue swelling most likely on the basis of cellulitis, no definite evidence of the abscess. No retroseptal orbital involvement. Cutaneous defect likely representing a small ulcer was noted. Probable left malar region sebaceous cyst or other cutaneous lesion. The patient subsequently undergone incision and drainage of the lower eyelid, started on antibiotic, and admitted for further management. Vital signs were stable. Initially, low potassium - 2.3, repleted in ED. The patient was diagnosed with periorbital cellulitis of right lower eyelid, hypokalemia, possible abscess, and infected sebaceous cyst. HOSPITAL STAY: The patient was admitted to Med/Surg floor. ID consult was requested. The patient was started on empiric IV antibiotics. Wound culture revealed normal skin ricco. Blood cultures were negative. The patient was on the IV antibiotics. Blood pressure was stable, no need for antihypertensive medication. Blood sugar was managed with sliding scale of insulin. Pain management was provided. Bowel regimen was instituted. Potassium after repletion -3.8. DVT prophylaxis provided. Initially attempted to get icu specialist evaluation, however, Dr. Martin had a surgery that morning and was not available. Discussed with the Infectious Disease doctor, per ID recommendations , the patient was cleared to be discharged home on oral antibiotics. Scripts provided. The patient was instructed to follow up with the primary medical doctor next week and get a referral to icu specialist per insurance plan to see for further management. Due to rapid and unexpected improvement in the patient's condition, the patient was discharged in one day. FINAL DIAGNOSES: 1. Right periorbital cellulitis. 2. Acute hypokalemia. 3. Diabetes. 4. Hypertension. 5. Possibly infected sebaceous cyst. DISCHARGE MEDICATIONS: See medication reconciliation list. Scripts provided for antibiotic. Encouraged compliance. DISCHARGE INSTRUCTIONS: The patient was discharged home. Follow up next week with the primary medical doctor to get a referral to icu specialist per insurance plan for further management. Tequila Duffy M.D. Katarina Mauricio ([facility] N.PYusra DR: TAPAN JOB#: [id number] CC: JESU
--- NOTE | 2017-08-31 08:31 | Discharge Summary 2 SIG ---
DATE OF ADMISSION: 08/26/2017 DATE OF DISCHARGE: 08/27/2017 REASON FOR ADMISSION: 52-year-old male, presented with right eye swelling. He reported white thick material coming out on squeezing the eye about a week ago. At that time, swelling resolved, but then it returned, The patient went to [facility] emergency department day prior to presentation in [facility]. He received prescription for Bactrim and Keflex. However, he woke up last night with increased swelling of right eye , and came to the emergency department for evaluation. In addition, he complained of the pain in the right eye. No fever, no chills. No nausea, no vomiting. He could not open his eye. Workup revealed stable vital signs. The patient had no fever, no leukocytosis. Facial bone CT revealed right periorbital and malar soft tissue swelling most likely on the basis of cellulitis, no definite evidence of the abscess. No retroseptal orbital involvement. Cutaneous defect likely representing a small ulcer was noted. Probable left malar region sebaceous cyst or other cutaneous lesion. The patient subsequently undergone incision and drainage of the lower eyelid, started on antibiotic, and admitted for further management. Vital signs were stable. Initially, low potassium - 2.3, repleted in ED. The patient was diagnosed with periorbital cellulitis of right lower eyelid, hypokalemia, possible abscess, and infected sebaceous cyst. HOSPITAL STAY: The patient was admitted to Med/Surg floor. ID consult was requested. The patient was started on empiric IV antibiotics. Wound culture revealed normal skin ricco. Blood cultures were negative. The patient was on the IV antibiotics. Blood pressure was stable, no need for antihypertensive medication. Blood sugar was managed with sliding scale of insulin. Pain management was provided. Bowel regimen was instituted. Potassium after repletion -3.8. DVT prophylaxis provided. Initially attempted to get director cost evaluation, however, Dr. Martin had a surgery that morning and was not available. Discussed with the Infectious Disease doctor, per ID recommendations , the patient was cleared to be discharged home on oral antibiotics. Scripts provided. The patient was instructed to follow up with the primary medical doctor next week and get a referral to director cost per insurance plan to see for further management. Due to rapid and unexpected improvement in the patient's condition, the patient was discharged in one day. FINAL DIAGNOSES: 1. Right periorbital cellulitis. 2. Acute hypokalemia. 3. Diabetes. 4. Hypertension. 5. Possibly infected sebaceous cyst. DISCHARGE MEDICATIONS: See medication reconciliation list. Scripts provided for antibiotic. Encouraged compliance. DISCHARGE INSTRUCTIONS: The patient was discharged home. Follow up next week with the primary medical doctor to get a referral to director cost per insurance plan for further management. Tequila Duffy M.D. Katarina Mauricio ([facility]: TAPAN JOB#: [id number] CC: JESU
== END 2017-08-27 15:17 | disposition home or self-care (01) | DRG 383 ==
LOC: EDBD 03:19 → EMR 03:34 → 4E 04:40 → EDBEDREQ 05:05
DX: L03.213 Periorbital cellulitis (principal); I10 Essential (primary) hypertension; B95.8 Unspecified staphylococcus as the cause of diseases classified elsewhere; E11.9 Type 2 diabetes mellitus without complications; J44.9 Chronic obstructive pulmonary disease, unspecified; H00.032 Abscess of right lower eyelid; E87.6 Hypokalemia; Z88.8 Allergy status to other drugs, medicaments and biological substances; Z79.4 Long term (current) use of insulin
CPT/HCPCS: 10060; 36415; 70488; 80048; 80053; 82962; 85025; 87040; 87070; 87205; 93970; 94664; 99285; J1815; J2405; J8499